=== PATIENT | female | born 1985 | race Hispanic/Latino ===

== ENCOUNTER 2018-08-13 23:12 | Inpatient (IN) | payer MEDICAID, OTHER ==
[~2018-08-13] VITALS: Ht 149.9 cm; Wt 94.8 kg
[2018-08-13 23:55] LABS: APPEARANCE,URINE Clear (CLEAR); BILIRUBIN,URINE Negative (NEGATIVE); COLOR,URINE Dark Yellow (YELLOW); GLUCOSE, URINE (UA) Negative (NEGATIVE); KETONES,URINE Trace mg/dL (NEGATIVE); LEUKOCYTE ESTERASE ,URINE Large (NEGATIVE); NITRATE,URINE Negative (NEGATIVE); OCCULT BLOOD,URINE Negative (NEGATIVE); PH,URINE 5.5 (5.0-8.0); PROTEIN,URINE Trace mg/dL (NEGATIVE)
[2018-08-14 00:07] LABS: BACTERIA,URINE Moderate /HPF (None Seen); MUCUS,URINE Few LPF (None Seen); SQUAMOUS EPITHELIAL CELL,UR Moderate /HPF (0-2); YEAST,URINE BUDDING Few /HPF (None Seen)
[2018-08-14 00:16] LABS: HEMATOCRIT 27.4 % (36-48); MEAN CORPUSCULAR HEMOGLOBIN 29.8 pg (27.0-33.0); MEAN CORPUSCULAR HGB CONC 33.7 g/dL (32.0-36.0); MEAN CORPUSCULAR VOLUME 88.6 fL (79-99); PLATELET COUNT (AUTO) 360 K/uL (130-400); RED BLOOD CELL COUNT(AUTO) 3.09 MIL/uL (4.00-5.50); RED CELL DISTRIBUTION WIDTH 14.3 % (11.0-15.5); WHITE BLOOD COUNT (AUTO) 10.9 K/uL (4.8-10.8)
[2018-08-14 00:21] VITALS: BP 102/58
[2018-08-14] MEDS ORDERED: AMPICILLIN 2GM+NS 100ML 100 ML IV SCH ×2 (01:15→15:00)
[2018-08-14] MEDS: LACTATED RINGERS 1000ML 1,000 ML IV PRN ×3 (02:42→21:46)
[2018-08-14] MEDS ORDERED: AMPICILLIN 1GM+NS 50ML 50 ML IV SCH (05:00)
[2018-08-14 08:58] LABS: RAPID PLASMA REAGIN NONREACTIVE (NONREACTIVE)
[2018-08-14] MEDS ORDERED: OXYTOCIN 10 USP UNITS/ML 20 UNIT in LACTATED RINGERS 1000ML 1,000 ML IV SCH (14:00)
[2018-08-14] MEDS: OXYTOCIN-LR 20 UNITS/1000 ML 1,000 ML IV SCH (14:53)
[2018-08-14] MEDS ORDERED: LACTATED RINGERS 500 ML 500 ML IV PRN (19:30)
[2018-08-14] MEDS ORDERED: EPHEDRINE SULFATE 50 MG/ML AMPULE IVP PRN (19:30)
[2018-08-14] MEDS ORDERED: NALOXONE HCL 0.4 MG/1 ML ML IV PRN (19:30)
[2018-08-14] MEDS: AMPICILLIN 1GM+NS 50ML 50 ML IV SCH ×2 (19:58→23:48)
[2018-08-15] MEDS ORDERED: LIDOCAINE 2%-EPI 1:200,000 20 ML VIAL IJ ONE (02:08)
[2018-08-15] MEDS ORDERED: ROPIVACAINE 0.2% 100ML VIAL 100 ML EP SCH (02:15)
[2018-08-15] MEDS ORDERED: LIDOCAINE 2%-EPI 1:200,000 20 ML VIAL IJ SCH (02:15)
[2018-08-15] MEDS: AMPICILLIN 1GM+NS 50ML 50 ML IV SCH ×5 (03:59→19:00)
[2018-08-15] MEDS: OXYTOCIN-LR 20 UNITS/1000 ML 1,000 ML IV SCH ×2 (08:02→19:25)
[2018-08-15] MEDS ORDERED: METHYLERGONOVINE MALEATE 0.2 MG/1 ML ML ONE (16:57)
[2018-08-15] MEDS ORDERED: OXYTOCIN 10 USP UNITS/ML ONE (16:57)
[2018-08-15] MEDS ORDERED: ACETAMINOPHEN-CODEINE 300/30MG TAB PO PRN (17:30)
[2018-08-15] MEDS ORDERED: WITCH HAZEL 1 PAD TP PRN (17:30)
[2018-08-15] MEDS ORDERED: LANOLIN 30GM OINTMENT TP PRN (17:30)
[2018-08-15] MEDS ORDERED: BENZOCAINE/LANOLIN/ALOE VERA 60 ML AEROSOL TP PRN (17:30)
[2018-08-15] MEDS: IBUPROFEN 600 MG TABLET PO PRN (18:25)
[2018-08-15 20:00] VITALS: BP 100/60
--- NOTE | 2018-08-15 20:00 | NUR ---
Pt visiting with spouse & mother in law at bedside, denies any concerns or discomfort at present. Instructing to call for any assistance & informing of plan for assessment after visitors leave. Pt voices understanding & agrees to plan. Addendum: 08/16/18 at 0013 by ANABELLA BEAUCHAMP RN RN Amended: Links added.
--- NOTE | 2018-08-15 20:30 | NUR ---
Explaining current plan of care, pain management options and reinforcing teaching on regular diet until midnight then is NPO for BTL scheduled in am; pt voices understanding and agrees to plan. Addendum: 08/16/18 at 0756 by ANABELLA BEAUCHAMP RN RN Amended: Links added.
[2018-08-15] MEDS: DOCUSATE SODIUM 100 MG CAP PO SCH (22:30)
[2018-08-16] VITALS (14 sets, daily range): BP systolic 84–132; BP diastolic 55–81
--- NOTE | 2018-08-16 | NUR ---
discharge instructions given and reviewing with pt, voices understanding & agrees to instructions, denies questions at present. Addendum: 08/16/18 at 0758 by ANABELLA BEAUCHAMP RN RN Amended: Links added.
[2018-08-16] MEDS: IBUPROFEN 600 MG TABLET PO PRN ×4 (00:45→23:47)
[2018-08-16] MEDS: ACETAMINOPHEN 325 MG TAB PO PRN ×3 (04:00→20:43)
[2018-08-16 04:09] LABS: HEPATITIS Bs ANTIGEN SCREEN P Negative (Negative)
[2018-08-16 07:41] LABS: HEMATOCRIT 23.3 % (36-48); MEAN CORPUSCULAR HEMOGLOBIN 29.5 pg (27.0-33.0); MEAN CORPUSCULAR HGB CONC 33.1 g/dL (32.0-36.0); NUCLEATED RED BLOOD CELLS 0.1 % (0.0-0.19); PLATELET COUNT (AUTO) 261 K/uL (130-400); RED BLOOD CELL COUNT(AUTO) 2.62 MIL/uL (4.00-5.50); RED CELL DISTRIBUTION WIDTH 14.3 % (11.0-15.5)
[2018-08-16] MEDS ORDERED: LIDOCAINE PF 2% 5ML ABBOJECT ONE (08:06)
[2018-08-16] MEDS ORDERED: MIDAZOLAM HCL 1 MG/ML 2ML VIAL ONE (08:10)
[2018-08-16] MEDS ORDERED: PROPOFOL 10 MG/ML 20ML VIAL IV ONE (08:22)
[2018-08-16] MEDS ORDERED: FENTANYL CITRATE PF 50 MCG/1 ML 2ML VIAL ONE ×2 (08:29→09:12)
[2018-08-16] MEDS ORDERED: SIMETHICONE 80 MG TAB.CHEW PO PRN (09:30)
[2018-08-16] MEDS ORDERED: PROMETHAZINE HCL 25 MG/ML 1ML AMPULE IM PRN ×2 (09:30)
[2018-08-16] MEDS: DOCUSATE SODIUM 100 MG CAP PO SCH ×2 (09:56→20:43)
[2018-08-16] MEDS ORDERED: MEASLES/MUMPS/RUBELLA VACCINE, LIVE 0.5 ML/VIAL SQ ONE (16:00)
[2018-08-16] MEDS ORDERED: DIPH,PERTUSS(ACELL),TET VAC/PF 0.5 ML VIAL IM ONE (16:00)
[2018-08-17 03:36] VITALS: BP 111/65
[2018-08-17 07:17] VITALS: BP 126/75
[2018-08-17] MEDS: DOCUSATE SODIUM 100 MG CAP PO SCH (09:03)
[2018-08-17] MEDS: IBUPROFEN 600 MG TABLET PO PRN (09:05)
--- NOTE | 2018-08-17 09:32 | NUR ---
MD CERVANTES ROUNDING ON PATIENT. DISCHARGE POC DISCUSSED. PATIENT OKAY FOR DISCHARGE.
[2018-08-17] MEDS: ACETAMINOPHEN 325 MG TAB PO PRN (10:54)
--- NOTE | 2018-08-17 10:55 | NUR ---
DISCHARGE INSTRUCTIONS DISCHARGE INSTRUCTIONS DISCHARGE INSTRUCTIONS READ AND EXPLAINED TO PATIENT. PRESCRIPTION FOR IBUPROFEN 600MG AND TYLENOL #3 HANDED TO PATIENT. QUESTIONS INVITED AND ANSWERED. REEDUCATED PATIENT ON INCISION CARE FOR BTL INCISION SITE. PATIENT VERBALIZED UNDERSTANDING.
--- NOTE | 2018-08-17 12:00 | NUR ---
DISCHARGE PATIENT LEFT UNIT VIA WHEELCHAIR WITH BABY IN ARMS ACCOMPANIED BY SIGNIFICANT OTHER. PERSONAL VEHICLE USED FOR TRANSPORTATION. BABY SECURE IN CARSEAT.
== END 2018-08-17 12:00 | disposition home or self-care (01) | DRG 798 ==
LOC: LDH 23:12 → WSH 08-15 19:00
PROVIDERS: ADMIT Obstetrics & Gynecology; ATTEND Obstetrics & Gynecology
PROC: 10E0XZZ Delivery of Products of Conception, External Approach (ICD-10-PCS; 2018-08-15)
PROC: 3E0234Z Introduction of Serum, Toxoid and Vaccine into Muscle, Percutaneous Approach (ICD-10-PCS; 2018-08-15)
PROC: 3E0134Z Introduction of Serum, Toxoid and Vaccine into Subcutaneous Tissue, Percutaneous Approach (ICD-10-PCS; 2018-08-15)
PROC: 0UQGXZZ Repair Vagina, External Approach (ICD-10-PCS; 2018-08-15)
PROC: 0UB70ZZ Excision of Bilateral Fallopian Tubes, Open Approach (ICD-10-PCS; principal; 2018-08-16 08:00)
DX: O40.3XX0 Polyhydramnios, third trimester, not applicable or unspecified (principal); Z37.0 Single live birth; O24.429 Gestational diabetes mellitus in childbirth, unspecified control; O99.214 Obesity complicating childbirth; E66.9 Obesity, unspecified; Z30.2 Encounter for sterilization; Z3A.37 37 weeks gestation of pregnancy; Z23 Encounter for immunization
CPT/HCPCS: 36415; 76805; 81001; 82947; 82948; 85027; 86592; 86701; 86850; 86900; 86901; 87340; 87390; 90707; 90715; A4314; A4606; G0378; J0290; J2001; J2210; J2250; J2590; J2704; J2795; J3010; J3490; J7120